=== PATIENT | male | born 1950 | race Caucasian/White ===

== ENCOUNTER → 2017-08-26 | Outpatient (CLI) | payer OTHER ==
[~2017-08-26] VITALS: Ht 182.9 cm; Wt 99.8 kg
[~2017-08-26] MED LIST: ALDACTONE25 MG PO; ASPIR 8181 MG PO; CARDIO OMEGA B1 EACH PO; CENTRUM SILVER1 EAC2 PO; COREG25 MG PO; COZAAR 25 MG TA25 M1 PO; ENTRESTO 49 MG1 EACH PO; FISH OIL 1,001000 M2 PO; LIPITOR 20 MG T20 M1 PO; SYNTHROID112 MCG PO
--- NOTE | ~2017-08-26 | P ---
[facility] [place] [place] [address] PROCEDURE REPORT Name: BLANCA SKELTON Room #: REG [facility]#: [id number] Admission: 08/26/17 Attend Phys: Vince Jain Discharge: Date of : 54 Report #: [id number] THIS REPORT FOR: //name// CC: Vince Payne MD DATE OF SERVICE: 08/26/2017 PROCEDURE PERFORMED: Colonoscopy. HISTORY OF PRESENT ILLNESS: The patient is a 66-year-old male who presents today for routine screening colonoscopy. No previous history of endoscopy. He denies any symptoms. No family history of colon cancer. DESCRIPTION OF PROCEDURE: The risks and benefits of the procedure were explained to the patient, those risks including but not limited to bleeding, perforation, the risk of sedation. He understood these risks and gave informed consent. Sedation was given using propofol per anesthesia. Next, a digital rectal exam was initially performed, which was normal. Next, using a standard Fujinon colonoscope, the scope was placed in the patient's anus and advanced under direct vision to the cecum. The overall prep was excellent. The cecum and ileocecal valve were normal in appearance. Terminal ileum was intubated and normal in appearance. The ascending, transverse and descending colon were normal. Multiple diverticula were noted in the sigmoid colon, no evidence of inflammation, otherwise normal. The rectal mucosa was normal. On retroflexion, no abnormalities were noted. The scope was then withdrawn and small external hemorrhoid was noted. The procedure was terminated. The patient tolerated the procedure well. IMPRESSION: 1. Diverticulosis. 2. Otherwise, normal colonoscopy. RECOMMENDATIONS: Repeat colonoscopy in 10 years. Thank you for allowing me to participate in his care. <ELECTRONICALLY SIGNED> By: Vince Heller MD 09/02/17 0808 0934 50 Vince Heller MD /nt
== END | disposition home or self-care (01) ==
LOC: GI 07:41
DX: Z12.11 Encounter for screening for malignant neoplasm of colon (principal); K57.30 Diverticulosis of large intestine without perforation or abscess without bleeding; I10 Essential (primary) hypertension; E78.5 Hyperlipidemia, unspecified; E03.9 Hypothyroidism, unspecified; Z95.0 Presence of cardiac pacemaker; Z95.5 Presence of coronary angioplasty implant and graft; Z87.891 Personal history of nicotine dependence; Z98.890 Other specified postprocedural states; Z79.82 Long term (current) use of aspirin; Z79.899 Other long term (current) drug therapy
CPT/HCPCS: 62110; 62900

== ENCOUNTER → 2018-06-02 | Outpatient (CLI) | payer OTHER ==
[~2018-06-02] VITALS: Ht 182.9 cm; Wt 99.8 kg
--- NOTE | ~2018-06-02 | CATHLAB ---
[facility] [address] [place] [address] INVASIVE PROCEDURE REPORT Name: BLANCA SKELTON Will Room #: REG [facility]#: [id number] Admission: 06/02/18 Attend Phys: Osmani Lu Discharge: Date of : 54 Date of Service: 06/08/18 180 Report #: [id number] THIS REPORT FOR: //name// APPROVED REPORT Study performed: 06/02/2018 08:45:57 Patient Status: Out-Patient Room #: Event Personnel: Dionna Tijerina RN RN, Helen Stern RN Monitor, Pari Monroe, Osmani Ramos Yeast Fermentation Attendant Exam: GENERATOR CHANGE DUAL CHAMBER ICD Indications: EOL for primary prevention in an individual with optimized guidelines directed medical therapy and reduced left ventricular ejection fraction The patient is a 67 year-old male with a history of ischemic cardiomyopathy on optimize guidelines directed medical therapy. Intraoperative Conscious Sedation Versed 4 mg Demerol 25 mg IV push and 12.5 mg aliquots Implanted Devices: ICD-ST. NADER [id number] #[id number] Explanted Devices: ICD-MEDTRONIC PROTECTA XT DR [id number] Procedure After explaining the risks, benefits, and alternative options, informed consent was obtained from the patient. The patient was brought to the cardiac catheterization lab and the left chest and shoulder were prepped and draped in the usual fashion. After initiation of sedation the post-incision site was instilled with 1% lidocaine with epinephrine. The region was entirely instilled that was to be the incision site as well as deeper encompassing the pocket. Utilizing an 11 blade incision was made as antibiotic solution was infusing intravenously. Using both sharp and blunt dissection the capsule of the pocket was identified. Utilizing a blade the pocket was incised and 2 mosquito peons were utilized to extend the pocket as the Metzenbaum was utilized to open the pocket lengthwise. The device was then delivered without complications. The adherent tissue around the leads was carefully excised with the [facility] [address] [place] [address] INVASIVE PROCEDURE REPORT Name: COSTABLANCA L Room #: REG [facility]#: [id number] Admission: 06/02/18 Attend Phys: Osmani Lu Discharge: Date of : 54 Date of Service: 06/08/18 1807 Report #: [id number] Metzenbaum scissors to provide better mobility. The replacement implanted device was then connected. The pocket was chest device and leads were all rinsed and thoroughly moistened with antibiotic solution. The device is then placed in the pocket and positioning was verified with leads deep to the greater. Using nonabsorbable suture 2 layers were a in a running locking stitch. The initial incision which was significantly keloid was excised and utilizing plastic surgical techniques the issues were opposed closely. Skin was without tension and using 3-0 running subcuticular suture skin was closed. Steri-Strips 4 x 4 OpSite were placed. Counts were verified. Patient pallor procedure well Complications The patient tolerated the procedure well and there were no complications associated with the procedure. Findings Specimens Removed: No Estimated Blood Loss: 5 mL Conclusion 1. Successful implantation and an exchange of a [employer]. Nader's 2-lead ICD generator. <ELECTRONICALLY SIGNED> By: Osmani Ramos MD 06/08/181806 06 06 Osmani Ramos MD /INF
[2018-06-02 08:24] VITALS: BP 112/67
[2018-06-02 08:26] LABS: ABSOLUTE NEUTROPHILS 5.6 thou/uL (1.4-8.2); BASOPHILS 1.5 % (0.0-2.0); EOSINOPHILS 8.1 % (0.0-3.0); HEMATOCRIT 42.3 % (42.0-52.0); HEMOGLOBIN 14.4 gm/dL (14.0-18.0); LYMPHOCYTES 18.7 % (24.0-44.0); MCH 30.5 pg (26.0-34.0); MCV 89.9 fL (80.0-100.0); MONOCYTES 5.8 % (1.0-8.0); PLATELET COUNT 144 thou/uL (150-400); POLYS 65.9 % (36.0-66.0); WBC 8.5 thou/uL (4.0-11.0)
[2018-06-02 08:33] LABS: CALCIUM 9.1 mg/dL (8.5-10.1); CREATININE 1.4 mg/dL (0.7-1.3); POTASSIUM 4.5 mmol/L (3.5-5.1)
== END | disposition home or self-care (01) ==
LOC: CATH 07:55
PROVIDERS: Internal Medicine
DX: Z45.02 Encounter for adjustment and management of automatic implantable cardiac defibrillator (principal); I25.5 Ischemic cardiomyopathy; I11.0 Hypertensive heart disease with heart failure; I50.9 Heart failure, unspecified; I25.2 Old myocardial infarction; E78.5 Hyperlipidemia, unspecified; E03.9 Hypothyroidism, unspecified; Z82.49 Family history of ischemic heart disease and other diseases of the circulatory system; Z95.5 Presence of coronary angioplasty implant and graft; Z87.891 Personal history of nicotine dependence; Z79.82 Long term (current) use of aspirin; Z79.899 Other long term (current) drug therapy; Z98.890 Other specified postprocedural states

== ENCOUNTER → 2018-07-14 | Outpatient (CLI) | payer OTHER ==
[~2018-07-14] VITALS: Ht 182.9 cm; Wt 99.8 kg
[~2018-07-14] MED LIST changes: +ENTRESTO 24 MG1 EACH PO; +PLAVIX 75 MG TA75 M1 PO
[2018-07-14 08:34] VITALS: BP 86/60
[2018-07-14 08:49] LABS: HEMATOCRIT 43.9 % (42.0-52.0); HEMOGLOBIN 14.7 gm/dL (14.0-18.0); MCH 30.7 pg (26.0-34.0); MCHC 33.5 g/dL (28.0-37.0); MCV 91.7 fL (80.0-100.0); RBC 4.79 mil/uL (4.50-6.00); RDW 15.2 % (10.5-14.5); WBC 9.1 thou/uL (4.0-11.0)
[2018-07-14 08:58] LABS: CALCIUM 9.2 mg/dL (8.5-10.1); CREATININE 1.5 mg/dL (0.7-1.3); POTASSIUM 4.9 mmol/L (3.5-5.1)
[2018-07-14 09:09] LABS: PROTIME 10.7 Seconds (9.3-11.4)
--- NOTE | 2018-07-14 12:08 | EKG ---
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
--- NOTE | 2018-07-17 11:44 | CATHLAB ---
[facility] [address] [place] [address] INVASIVE PROCEDURE REPORT Name: COSTABLANCA Will Room #: REG [facility]#: [id number] Admission: 07/14/18 Attend Phys: Osmani Lu Discharge: Date of : 54 Date of Service: 07/17/18 1144 Report #: [id number] THIS REPORT FOR: //name// APPROVED REPORT Study performed: 07/14/2018 11:08:32 Patient Details Patient Status: Out-Patient Room #: The patient is a 67 year-old male Event Personnel Osmani Ramos [place]ort Planning Manager, Joycelyn Verduzco, Ambrosio Alanis Penny, Wes neurology manager Performed Art Access - R femoral artery* 17139 Initial Mod Sed Same Phys/QHP Gr5y 655861 Left Heart Cath w/or w/o Coronaries [id number] [facility] Hemostasis with Manual pressure supervision of conscious sedation Indication Chest pain Procedure Narrative The patient was brought electively to the Cardiac Catheterization Laboratory and was prepped and draped in a sterile manner. The Right Groin^ was infiltrated with 1% Lidocaine subcutaneous anesthesia. A PINNACLE 4FR Sheath #[id number] sheath was inserted into the RFA^. Coronary angiography was performed using coronary diagnostic catheters. The right coronary system was accessed and visualized with a JR 4 catheter. The left coronary system was accessed and visualized with a JL 4 catheter. The left ventricle was accessed and visualized with a JR 4 catheter. Left ventricular/Aortic Valve gradient assessed via catheter pullback. Hemostasis was obtained with manual pressure following sheath removal without any complications. The patient tolerated the procedure well and there were no complications associated with the procedure. There was no hematoma. Intraoperative Conscious Sedation Sedation start time: 11:05 Case end Time: 11:32 Versed 2 mg Fluoro Time: 2.00 minutes [place] [address] INVASIVE PROCEDURE REPORT Name: BLANCA SKELTON Room #: [facility]#: [id number] Admission: 07/14/18 Attend Phys: Osmani Lu Discharge: Date of : 54 Date of Service: 07/17/18 1144 Report #: [id number] Dose: DAP 3022.00 cGycm2 801 mGy Contrast Type and Amount: Omnipaque 45 ml Coronary Angiography The patient's coronary anatomy is right dominant. Diagnostic Cath Left Main Normal origin and moderate to large caliber bifurcates into left anterior descending left circumflex. This a distal 40% eccentric lesion identified which is nonflow limiting LAD Moderate to large caliber type II vessel which courses in the interventricular sulcus. The proximal stent appears to be patent with only minimal luminal restriction noted. The vessel then continues in the anterior interventricular sulcus terminating as a bifurcating branch of the luminary irregularities present Diagonal 1 Moderate caliber vessel it's a less than 50% ostial lesion noted. Then continues on towards the apex on the anterolateral wall with only luminal irregularities present Circumflex Moderate caliber vessel which courses in the AV groove posteriorly and then trifurcates into 2 marginal branches in the distal circulation as well as an orders of the AV node. No significant high-grade lesions are noted OM1 Small to moderate caliber vessel free of high-grade disease OM2 Small-caliber vessel without high-grade lesions noted terminating as a bifurcating vessel Right Coronary Totally occluded proximally R PDA Small-caliber vessel filling via [id number]-qhcdy collaterals without high-grade lesions present RPLV All caliber vessel filling via hucl-os-[id number] collaterals Left Ventriculography Left Ventriculography was not performed. Hemodynamics The aortic pressure is 88/57 mmHg with a mean of 68 mmHg. The left ventricular pressure is 101/8 mmHg with a mean of mmHg. The left ventricular end diastolic pressure is 21 mmHg. Conclusion 1. Coronary artery disease consisting of mild to moderate luminal irregularities of the left main and left circulation with totally occluded proximal RCA well collateralized with Left to Right flow 2. Abnormal hemodynamics with elevated LVEDP Recommendations [facility] [address] [place] [address] INVASIVE PROCEDURE REPORT Name: BLANCA SKELTON [id number] Admission: 07/14/18 Attend Phys: Osmani Lu Discharge: Date of : 54 Date of Service: 07/17/18 1144 Report #: [id number] Cardiac Risk Reduction Program Medical Therapy <ELECTRONICALLY SIGNED> By: Osmani Ramos MD 07/17/18 1144 1144 1144 Osmani Ramos MD /INF
== END | disposition home or self-care (01) ==
LOC: CATH 08:09
PROVIDERS: Internal Medicine
DX: I25.10 Atherosclerotic heart disease of native coronary artery without angina pectoris (principal); I10 Essential (primary) hypertension; I48.91 Unspecified atrial fibrillation; I25.2 Old myocardial infarction; I42.9 Cardiomyopathy, unspecified; I49.9 Cardiac arrhythmia, unspecified; E78.5 Hyperlipidemia, unspecified; E03.9 Hypothyroidism, unspecified; Z95.5 Presence of coronary angioplasty implant and graft; Z95.810 Presence of automatic (implantable) cardiac defibrillator; Z82.49 Family history of ischemic heart disease and other diseases of the circulatory system; Z79.01 Long term (current) use of anticoagulants; Z87.891 Personal history of nicotine dependence; Z79.82 Long term (current) use of aspirin; Z79.899 Other long term (current) drug therapy

== ENCOUNTER → 2018-08-14 | Outpatient (CLI) | payer OTHER ==
[~2018-08-14] VITALS: Ht 182.9 cm; Wt 104.3 kg
[~2018-08-14] MED LIST changes: +PRADAXA150 MG PO
--- NOTE | ~2018-08-14 | P ---
[facility] [place] [address] [place] [address] PROCEDURE REPORT Name: BLANCA SKELTON [facility] [id number] Admission: 08/14/18 Attend Phys: Vikas Finn MD Discharge: Date of : 54 Report #: [id number] THIS REPORT FOR: //name// CC: Devorah Finn PREOPERATIVE DIAGNOSIS: Atrial fibrillation. POSTOPERATIVE DIAGNOSIS: Atrial fibrillation. PROCEDURES PERFORMED: 1. External DC cardioversion. 2. ICD reprogramming. DESCRIPTION OF PROCEDURE: The patient underwent informed consent. He was then sedated by the Anesthesiology service. Once sedated, he underwent 200 joules synchronized cardioversion with jehovah's witness of sinus rhythm. There were no procedural complications. Post-cardioversion, his ICD was interrogated and found to be functioning normally and we programmed into a DDDR 60-130 mode. I increased his VF zone from 200 beats a minute to 220 beats a minute. By: 1354 1741 Vikas Finn MD /nt
[2018-08-14 09:45] VITALS: BP 96/52
[2018-08-14 09:55] LABS: HEMATOCRIT 39.9 % (42.0-52.0); HEMOGLOBIN 13.3 gm/dL (14.0-18.0); MCH 30.8 pg (26.0-34.0); MCHC 33.4 g/dL (28.0-37.0); MCV 92.4 fL (80.0-100.0); RBC 4.32 mil/uL (4.50-6.00); RDW 15.4 % (10.5-14.5); WBC 8.3 thou/uL (4.0-11.0)
[2018-08-14 10:01] LABS: CALCIUM 8.9 mg/dL (8.5-10.1); CREATININE 1.5 mg/dL (0.7-1.3); POTASSIUM 4.8 mmol/L (3.5-5.1)
[2018-08-14 10:06] LABS: ALBUMIN 3.5 g/dL (3.4-5.0); TOTAL BILIRUBIN 0.7 mg/dL (<0.1-1.0); TOTAL PROTEIN 6.6 g/dL (6.4-8.2)
[2018-08-14 10:08] LABS: APTT 53.7 Seconds (24.5-32.8); INR 1.5; PROTIME 15.3 Seconds (9.3-11.4)
--- NOTE | 2018-08-14 12:30 | NUR ---
DEVICE CHECK DONE. ADJUSTMENTS MADE PER DR GERBER. VSS. NSR. NOW AT BEDSIDE. PT AWAKE AND ALERT X4. NO C/O. PLEASENT AFFECT. QUESTIONS ANSWERED RE AFIB. VOIDED 200CC PER URINAL. REQUESTS LUNCH PRIOR TO DISCHARGE. RA O2 SAT 99%. CONT TO RECOVER.
== END | disposition home or self-care (01) ==
LOC: CATH 07:01
PROVIDERS: Internal Medicine Cardiovascular Disease
DX: I48.91 Unspecified atrial fibrillation (principal); I11.0 Hypertensive heart disease with heart failure; I50.9 Heart failure, unspecified; I42.9 Cardiomyopathy, unspecified; E78.5 Hyperlipidemia, unspecified; E03.9 Hypothyroidism, unspecified; I25.2 Old myocardial infarction; Z95.5 Presence of coronary angioplasty implant and graft; Z82.49 Family history of ischemic heart disease and other diseases of the circulatory system; Z79.01 Long term (current) use of anticoagulants; Z95.810 Presence of automatic (implantable) cardiac defibrillator; Z98.890 Other specified postprocedural states; Z79.82 Long term (current) use of aspirin; Z79.899 Other long term (current) drug therapy
CPT/HCPCS: 62110; 62900

== ENCOUNTER 2019-01-05 07:34 | Emergency (ER) | payer OTHER ==
[~2019-01-05] VITALS: Ht 182.9 cm; Wt 99.8 kg
[2019-01-05 08:08] LABS: URINE BILIRUBIN NEGATIVE (Negative); URINE BLOOD 3+ (Negative); URINE CLARITY CLEAR; URINE COLOR YELLOW; URINE GLUCOSE-RANDOM* NEGATIVE (Negative); URINE KETONES NEGATIVE (Negative); URINE LEUKOCYTES-REFLEX TRACE (Negative); URINE NITRITE-REFLEX NEGATIVE (Negative); URINE PROTEIN (DIPSTICK) TRACE (Negative); URINE SPECIFIC GRAVITY >= 1.030 (1.005-1.035); URINE UROBILINOGEN 0.2 E.U./dl (0.2-1.0)
[2019-01-05 08:21] LABS: SQUAMOUS 4-10 Moderate /LPF (0-3)
[2019-01-05 08:22] LABS: CASTS None Seen /LPF (None Seen); MUCUS >6 Heavy strn/LPF (None Seen); URINE WBC-REFLEX 0-5 Rare /HPF (0-5)
[2019-01-05 08:23] LABS: BACTERIA-REFLEX 1-9 Few /HPF (None Seen); CRYSTALS None Seen /LPF (None Seen); URINE RBC >20 Many /HPF (0-2)
[2019-01-05 08:44] LABS: CALCIUM 9.3 mg/dL (8.5-10.1); CREATININE 1.7 mg/dL (0.7-1.3); POTASSIUM 4.6 mmol/L (3.5-5.1)
[2019-01-05 08:48] LABS: ABSOLUTE NEUTROPHILS 9.9 thou/uL (1.4-8.2); BASOPHILS 0.6 % (0.0-2.0); EOSINOPHILS 3.9 % (0.0-3.0); HEMATOCRIT 39.4 % (42.0-52.0); HEMOGLOBIN 13.1 gm/dL (14.0-18.0); LYMPHOCYTES 12.1 % (24.0-44.0); MCH 30.7 pg (26.0-34.0); MCHC 33.1 g/dL (28.0-37.0); MCV 92.6 fL (80.0-100.0); MONOCYTES 5.2 % (1.0-8.0); POLYS 78.2 % (36.0-66.0); RBC 4.26 mil/uL (4.50-6.00); RDW 14.4 % (10.5-14.5); WBC 12.6 thou/uL (4.0-11.0)
[2019-01-05 08:50] LABS: ALBUMIN 3.5 g/dL (3.4-5.0); TOTAL BILIRUBIN 0.6 mg/dL (<0.1-1.0); TOTAL PROTEIN 6.6 g/dL (6.4-8.2)
[2019-01-05 09:43] LABS: PLATELET COUNT 158 thou/uL (150-400); PLATELET ESTIMATE NORMAL
[2019-01-05] MEDS ORDERED: SENNA-DOCUSATE1 EAC1 PO (11:19)
[2019-01-05] MEDS ORDERED: ZOFRAN ODT4 MG PO (11:19)
[2019-01-05] MEDS ORDERED: NORCO 5-325 TA1 EAC1 PO (11:19)
[2019-01-05 11:40] VITALS: BP 118/56
== END 2019-01-05 11:40 | disposition home or self-care (01) ==
LOC: ER 07:34
PROVIDERS: Emergency Medicine
DX: N20.0 Calculus of kidney (principal); I10 Essential (primary) hypertension; E78.5 Hyperlipidemia, unspecified; E03.9 Hypothyroidism, unspecified; Z95.5 Presence of coronary angioplasty implant and graft; I48.91 Unspecified atrial fibrillation

== ENCOUNTER → 2019-11-27 | Outpatient (CLI) | payer OTHER ==
[~2019-11-27] MED LIST changes: +NORCO 5-325 TA1 EAC1 PO; +SENNA-DOCUSATE1 EAC1 PO; +ZOFRAN ODT4 MG PO
== END ==
LOC: SJCVC 10:52
DX: R94.31 Abnormal electrocardiogram [ECG] [EKG] (principal); I48.91 Unspecified atrial fibrillation; I25.5 Ischemic cardiomyopathy; Z95.810 Presence of automatic (implantable) cardiac defibrillator

== ENCOUNTER 2019-12-18 08:01 | Emergency (ER) | payer OTHER ==
[~2019-12-18] VITALS: Ht 182.9 cm; Wt 97.5 kg
[2019-12-18] MEDS ORDERED: ENTRESTO 24 MG1 EACH PO (08:21)
[2019-12-18] MEDS ORDERED: SYNTHROID112 MC1 PO (08:22)
[2019-12-18] MEDS ORDERED: LIPITOR40 MG PO (08:22)
[2019-12-18 08:23] LABS: BASOPHILS 0.8 % (0.0-2.0); EOSINOPHILS 1.7 % (0.0-3.0); HEMATOCRIT 39.7 % (42.0-52.0); HEMOGLOBIN 13.4 gm/dL (14.0-18.0); LYMPHOCYTES 8.6 % (24.0-44.0); MCH 31.5 pg (26.0-34.0); MCHC 33.8 g/dL (28.0-37.0); MCV 93.3 fL (80.0-100.0); MONOCYTES 5.3 % (1.0-8.0); PLATELET COUNT 146 thou/uL (150-400); POLYS 83.6 % (36.0-66.0); RBC 4.26 mil/uL (4.50-6.00); RDW 15.1 % (10.5-14.5); WBC 9.6 thou/uL (4.0-11.0)
[2019-12-18] MEDS ORDERED: FISH OIL 1,0001 EAC9 PO (08:23)
[2019-12-18] MEDS ORDERED: PRADAXA150 MG PO (08:23)
[2019-12-18] MEDS ORDERED: CARVEDILOL12.5 MG PO (08:23)
[2019-12-18] MEDS ORDERED: SUPER THERAVIT1 EACH PO (08:23)
[2019-12-18 08:26] LABS: URINE BILIRUBIN NEGATIVE (Negative); URINE BLOOD 2+ (Negative); URINE CLARITY CLEAR; URINE COLOR YELLOW; URINE GLUCOSE-RANDOM* NEGATIVE (Negative); URINE KETONES TRACE (Negative); URINE NITRITE-REFLEX NEGATIVE (Negative); URINE PROTEIN (DIPSTICK) NEGATIVE (Negative); URINE SPECIFIC GRAVITY 1.025 (1.005-1.035); URINE UROBILINOGEN 0.2 E.U./dl (0.2-1.0)
[2019-12-18 08:31] LABS: URINE LEUKOCYTES-REFLEX 1+ (Negative)
[2019-12-18 08:33] LABS: CALCIUM 8.9 mg/dL (8.5-10.1); CREATININE 1.6 mg/dL (0.7-1.3); POTASSIUM 4.2 mmol/L (3.5-5.1)
[2019-12-18 08:39] LABS: ALBUMIN 3.5 g/dL (3.4-5.0); TOTAL PROTEIN 6.4 g/dL (6.4-8.2)
[2019-12-18 08:44] LABS: SQUAMOUS 0-3 Few /LPF (0-3); URINE RBC 3-10 Few /HPF (0-2); URINE WBC-REFLEX 6-15 Few /HPF (0-5)
[2019-12-18 08:45] LABS: CASTS None Seen /LPF (None Seen); CRYSTALS None Seen /LPF (None Seen)
[2019-12-18] MEDS ORDERED: ZOFRAN ODT4 MG PO ×2 (10:56→11:24)
[2019-12-18] MEDS ORDERED: NORCO 5-325 TA1 EAC1 PO (10:56)
[2019-12-18] MEDS ORDERED: SENNA-DOCUSATE1 EAC1 PO ×2 (10:56→11:24)
[2019-12-18] MEDS ORDERED: FLOMAX0.4 MG PO ×2 (10:56→11:24)
[2019-12-18] MEDS ORDERED: MACROBID 100 M100 MG PO ×2 (10:59→11:24)
[2019-12-18 11:40] VITALS: BP 98/52
== END 2019-12-18 11:40 | disposition home or self-care (01) ==
LOC: ER 08:01
PROVIDERS: Emergency Medicine
DX: N39.0 Urinary tract infection, site not specified (principal); E03.9 Hypothyroidism, unspecified; I10 Essential (primary) hypertension; E78.5 Hyperlipidemia, unspecified; I25.2 Old myocardial infarction; Z79.899 Other long term (current) drug therapy; Z87.442 Personal history of urinary calculi; Z95.0 Presence of cardiac pacemaker

== ENCOUNTER → 2020-04-29 | Outpatient (CLI) | payer OTHER ==
[~2020-04-29] MED LIST changes: +CARVEDILOL12.5 MG PO; +FISH OIL 1,0001 EAC9 PO; +FLOMAX0.4 MG PO; +LIPITOR40 MG PO; +MACROBID 100 M100 MG PO; +SUPER THERAVIT1 EACH PO; +SYNTHROID112 MC1 PO
== END ==
LOC: SJCVCIMAG 07:50
PROVIDERS: ATTEND Internal Medicine
DX: I08.1 Rheumatic disorders of both mitral and tricuspid valves (principal); I27.20 Pulmonary hypertension, unspecified; R94.31 Abnormal electrocardiogram [ECG] [EKG]; I25.5 Ischemic cardiomyopathy; I50.20 Unspecified systolic (congestive) heart failure; I48.0 Paroxysmal atrial fibrillation; Z79.899 Other long term (current) drug therapy; Z87.891 Personal history of nicotine dependence

== ENCOUNTER → 2020-05-16 | Outpatient (CLI) | payer OTHER ==
[~2020-05-16] VITALS: Ht 182.9 cm; Wt 97.5 kg
[~2020-05-16] MED LIST changes: +CARDIO TAB PO
--- NOTE | ~2020-05-16 | P ---
[facility] [place] [place] [address] PROCEDURE REPORT Name: BLANCA SKELTON Room #: REG [facility]#: [id number] Admission: 05/16/20 Attend Phys: Osmani Ramos Discharge: Date of : 54 Report #: [id number] THIS REPORT FOR: cc: Devorah Aparicio MD, Joy E. MD Lammoglia, Francisco J. MD ~ CC: Osmani Aparicio DATE OF SERVICE: 05/16/2020 PROCEDURE PERFORMED: Electrical cardioversion. INDICATIONS: This is a 69-year-old male patient with cardiomyopathy and new onset symptomatic atrial fibrillation. BRIEF DESCRIPTION OF PROCEDURE: After informed consent was obtained, the patient was sedated with 3 mg of Versed and 25 of Demerol IV. Continuous electrocardiographic and echocardiographic monitoring was performed. Utilizing a synchronized AP shock at 200 joules biphasic modality, the patient was converted to sinus mechanism with tracking ventricle. Post-procedure, no complications occurred. The patient was allowed to ambulate and discharged home in stable condition to follow up with the previously stated instructions and medications. By: 1539 1544 Osmani Ramos MD /nt
[2020-05-16 08:45] VITALS: BP 88/42
== END | disposition home or self-care (01) ==
LOC: CATH 07:51
PROVIDERS: ATTEND Internal Medicine
DX: I48.91 Unspecified atrial fibrillation (principal); I42.9 Cardiomyopathy, unspecified; I11.0 Hypertensive heart disease with heart failure; I50.9 Heart failure, unspecified; E78.5 Hyperlipidemia, unspecified; E03.9 Hypothyroidism, unspecified; I25.2 Old myocardial infarction; Z95.0 Presence of cardiac pacemaker; Z98.890 Other specified postprocedural states; Z79.899 Other long term (current) drug therapy; Z87.891 Personal history of nicotine dependence; Z82.49 Family history of ischemic heart disease and other diseases of the circulatory system; Z79.01 Long term (current) use of anticoagulants

== ENCOUNTER → 2020-07-17 | Outpatient (CLI) | payer OTHER | LOC: SJCVC 15:11 | PROVIDERS: ATTEND Internal Medicine | DX: I25.5 Ischemic cardiomyopathy (principal); I50.20 Unspecified systolic (congestive) heart failure; I48.0 Paroxysmal atrial fibrillation; R94.31 Abnormal electrocardiogram [ECG] [EKG]; Z95.0 Presence of cardiac pacemaker; E78.5 Hyperlipidemia, unspecified; Z95.1 Presence of aortocoronary bypass graft; Z79.899 Other long term (current) drug therapy; Z87.891 Personal history of nicotine dependence ==

== ENCOUNTER → 2020-09-18 | Outpatient (CLI) | payer OTHER | LOC: SJCVCIMAG 14:38 | PROVIDERS: ATTEND Internal Medicine | DX: I07.1 Rheumatic tricuspid insufficiency (principal); I48.91 Unspecified atrial fibrillation; I25.10 Atherosclerotic heart disease of native coronary artery without angina pectoris; I25.2 Old myocardial infarction; Z98.61 Coronary angioplasty status ==

== ENCOUNTER → 2020-11-13 | Outpatient (CLI) | payer OTHER | LOC: SJCVC 13:24 | PROVIDERS: ATTEND Internal Medicine Cardiovascular Disease | DX: R94.31 Abnormal electrocardiogram [ECG] [EKG] (principal); I45.4 Nonspecific intraventricular block; I48.91 Unspecified atrial fibrillation; I25.5 Ischemic cardiomyopathy; I25.10 Atherosclerotic heart disease of native coronary artery without angina pectoris; E78.5 Hyperlipidemia, unspecified; E03.9 Hypothyroidism, unspecified; Z98.890 Other specified postprocedural states; Z95.810 Presence of automatic (implantable) cardiac defibrillator; Z79.899 Other long term (current) drug therapy; Z87.891 Personal history of nicotine dependence; Z82.49 Family history of ischemic heart disease and other diseases of the circulatory system ==

== ENCOUNTER → 2020-12-22 | Outpatient (CLI) | payer OTHER ==
[2020-12-22 08:24] LABS: ABSOLUTE NEUTROPHILS 4.7 thou/uL (1.4-8.2); BASOPHILS 0.9 % (0.0-2.0); EOSINOPHILS 5.9 % (0.0-3.0); HEMATOCRIT 40.8 % (42.0-52.0); HEMOGLOBIN 13.5 gm/dL (14.0-18.0); LYMPHOCYTES 18.8 % (24.0-44.0); MCH 31.3 pg (26.0-34.0); MCV 94.6 fL (80.0-100.0); MONOCYTES 8.7 % (1.0-8.0); PLATELET COUNT 141 thou/uL (150-400); POLYS 65.7 % (36.0-66.0); RBC 4.32 mil/uL (4.50-6.00); WBC 7.1 thou/uL (4.0-11.0)
[2020-12-22 09:07] LABS: ALBUMIN 3.5 g/dL (3.4-5.0); CALCIUM 9.1 mg/dL (8.5-10.1); CREATININE 1.7 mg/dL (0.7-1.3); POTASSIUM 4.7 mmol/L (3.5-5.1); TOTAL BILIRUBIN 0.9 mg/dL (0.2-1.0); TOTAL PROTEIN 6.4 g/dL (6.4-8.2)
== END ==
LOC: CAT 06:50 → LAB 10:31
PROVIDERS: ATTEND Internal Medicine Cardiovascular Disease
DX: Z01.818 Encounter for other preprocedural examination (principal); I51.7 Cardiomegaly; I48.91 Unspecified atrial fibrillation

== ENCOUNTER 2020-12-25 06:25 | Observation (INO) | payer OTHER ==
[~2020-12-25] VITALS: Ht 182.9 cm; Wt 101.6 kg
[2020-12-25 07:19] VITALS: BP 95/50
[2020-12-25 07:42] LABS: ABSOLUTE NEUTROPHILS 3.7 thou/uL (1.4-8.2); BASOPHILS 1.1 % (0.0-2.0); EOSINOPHILS 7.2 % (0.0-3.0); HEMATOCRIT 41.5 % (42.0-52.0); HEMOGLOBIN 13.7 gm/dL (14.0-18.0); LYMPHOCYTES 19.4 % (24.0-44.0); MCH 31.3 pg (26.0-34.0); MONOCYTES 7.1 % (1.0-8.0); PLATELET COUNT 135 thou/uL (150-400); POLYS 65.2 % (36.0-66.0); RBC 4.37 mil/uL (4.50-6.00); WBC 5.7 thou/uL (4.0-11.0)
[2020-12-25 07:50] LABS: CALCIUM 8.7 mg/dL (8.5-10.1); CREATININE 1.5 mg/dL (0.7-1.3); POTASSIUM 4.2 mmol/L (3.5-5.1)
[2020-12-25 07:56] LABS: ALBUMIN 3.4 g/dL (3.4-5.0); TOTAL BILIRUBIN 0.8 mg/dL (0.2-1.0); TOTAL PROTEIN 6.4 g/dL (6.4-8.2)
[2020-12-25 08:28] LABS: APTT 40.2 Seconds (24.5-32.8); INR 1.14; PROTIME 12.4 Seconds (10.5-12.1)
[2020-12-25] MEDS ORDERED: MULTAQ 400 MG400 MG PO (15:47)
[2020-12-25 17:32] VITALS: BP 124/65
[2020-12-25 19:28] VITALS: BP 109/68
[2020-12-26] VITALS: BP 93/52
--- NOTE | 2020-12-26 01:40 | NUR ---
ASSESSMENT CHARTED, MEDS CHARTED GIVEN. PATIENT OFF BED REST AT START OF SHIFT. RIGHT GROIN SITE IS SOFT, CLEAN, DRY, INTACT. PATIENT HAD TO BE STRAIGHT CATH'D IN PACU WITH 800ML OUT. PATIENT HAS URINAL, HE KNOWS HE NEEDS TO URINATE BY 02OO OR WE WILL BLADDER SCAN AND POSSIBLE STRAIGHT CATH AGAIN. ICU NURSE COMING TO UNIT, GAVE REPORT TO OPHELIA PRIOR TO HER TAKING OVER AT 2300~.
[2020-12-26 03:52] VITALS: BP 115/63
[2020-12-26 08:50] VITALS: BP 100/62
[2020-12-26 09:51] VITALS: BP 100/62
[2020-12-26 11:21] VITALS: BP 100/62
--- NOTE | 2020-12-26 11:59 | P ---
[facility] [place] [place] [address] PROCEDURE REPORT Name: BLANCA SKELTON Room #: 212-P [facility]..#: [id number] Admission: 12/25/20 Attend Phys: Vikas Finn MD Discharge: Date of : 54 Report #: [id number] THIS REPORT FOR: cc: Devorah Aparicio MD, Joy E. MD Couchonnal, Luis F. MD DOC #: [id number] Vikas Finn MD DATE OF SERVICE: 12/25/2020 PREOPERATIVE DIAGNOSIS: Atrial fibrillation. POSTOPERATIVE DIAGNOSIS: Atrial fibrillation. PROCEDURE PERFORMED: 1. Preprocedural ICD reprogramming, CPT code 46009. 2. AFib ablation, CPT code 67939. 3. 3D mapping, CPT code 91190. 4. Intracardiac echo, CPT code 52909. 5. Focal ablation, CPT code 57779. 6. Post-procedural ICD reprogramming, CPT code 44776. HISTORY: The patient is a 70-year-old with a history of coronary artery disease status post PR with an ischemic cardiomyopathy, status post St. Nader ICD implantation, who has had recurrent atrial fibrillation, here for ablation. ANESTHESIA: The patient underwent general anesthesia with no anesthesia related complications. INDICATIONS FOR PROCEDURE: The patient underwent informed consent. We discussed the details of the procedure including the risks, which include but not limited to bleeding, vascular damage, stroke, PR as well as cardiac perforation. He understood these risks and is willing to proceed. DESCRIPTION OF PROCEDURE: The patient was brought to the EP laboratory in a fasting and sedated state and prepped and draped in a sterile fashion. Prior to initiation of the procedure, his ICD was interrogated and found to be within normal limits and he was noted to be in atrial fibrillation. I did turn off ICD therapies. Next, I injected lidocaine at the right groin and obtained access to the right femoral vein x 3, placing a 8, 9 and 7-Indonesian short sheath using the modified Seldinger technique. Next, under fluoroscopy, the patient had a decapolar catheter placed in coronary sinus. Of note, placement of catheters from the IVC to the right atrium was somewhat challenging. I had somewhat difficulty just entering into the right atrium and had some difficulties getting the coronary sinus catheter into the CS, but eventually we got it in with no issues. Using intracardiac ultrasound, the patient had evidence of 2 left and [address] [address] PROCEDURE REPORT Name: BLANCA SKELTON Room #: 212-P [facility]..#: [id number] Admission: 12/25/20 Attend Phys: Vikas Finn MD Discharge: Date of : 54 Report #: [id number] right pulmonary veins. His intracardiac ultrasound images were merged with his cardiac CT scan. Next, the patient was systemically heparinized and a transseptal was performed using an SL1 sheath and a Dixon needle. Again, getting into the SVC was somewhat difficult as the wires kept wanting to go either into the right atrial appendage or right ventricular outflow tract, but eventually I got it into the SVC and was able to avoid entanglement with the atrial lead. I then performed a transseptal which was straightforward using the SL1 sheath and Dixon needle and then I was able to exchange for the cryosheath which I was able to advance into the left atrium. Next, the Lasso catheter was placed in the left atrium and 3D voltage map of the left atrium was created. Next, I started by isolating the left superior pulmonary vein. I performed a 4-minute followed by 3-minute freeze which did not result in isolation. I therefore performed a freeze where I pushed the balloon more against the roof aspect of the left superior pulmonary vein and this resulted in isolation in 52 seconds. A third freeze was of 4 minutes' duration. Next, the left inferior pulmonary vein underwent a 300 second freeze which resulted in isolation at 170 seconds. I performed an additional freeze of 3 minutes duration. I then turned my attention to the right superior pulmonary vein. This vein underwent a 4-minute freeze and isolated at 40 seconds, the right inferior pulmonary vein underwent a 3-minute freeze and isolated at 23 seconds. There was never any phrenic nerve compromise. Posterior wall isolation. Next, given his persistent AFib, we performed posterior roof line. I performed 4 freezes anchored from the left superior pulmonary vein at the roof region. Each freeze was of 3 minutes' duration. I then performed 3 additional freezes slightly below, the root freezes each of 3 minutes' duration. A repeat voltage map was then created. This showed that all 4 pulmonary veins were isolated and the posterior roof and mid atrium were now all electrically isolated as well. A 200 joule synchronized cardioversion was performed with faith of sinus rhythm. There were no other arrhythmias noted. Using intracardiac ultrasound, I verified there is no pericardial effusion. As such, the patient then received systemic protamine and catheters and sheaths were pulled and hemostasis was obtained using manual pressure. Next, I re-interrogated this device, it was found to be functioning normally and I reenabled his ICD therapies. CONCLUSIONS: 1. Successful AFib ablation with isolation of pulmonary veins. 2. Successful posterior wall isolation. 3. Successful ICD pre and post-procedural reprogramming. [facility] [address] [place] [address] PROCEDURE REPORT Name: BLANCA SKELTON Room #: 212-P [facility] M.R.#: [id number] Admission: 12/25/20 Attend Phys: Vikas Finn MD Discharge: Date of : 54 Report #: [id number] MD SETH Smith/SCARLETT <ELECTRONICALLY SIGNED> By: Vikas Finn MD 12/26/20 1159 1031 2057 Vikas Finn MD /nt
== END 2020-12-26 12:05 | disposition home or self-care (01) ==
LOC: CATH 06:25 → 2N 17:21
PROVIDERS: ADMIT Internal Medicine Cardiovascular Disease; ATTEND Internal Medicine Cardiovascular Disease
DX: I48.91 Unspecified atrial fibrillation (principal); Z20.822 Contact with and (suspected) exposure to COVID-19; I25.10 Atherosclerotic heart disease of native coronary artery without angina pectoris; E78.5 Hyperlipidemia, unspecified; I11.0 Hypertensive heart disease with heart failure; I50.9 Heart failure, unspecified; Z79.899 Other long term (current) drug therapy
CPT/HCPCS: 62110; 62900; 65020; 70005

== ENCOUNTER → 2021-03-26 | Outpatient (CLI) | payer OTHER ==
[~2021-03-26] MED LIST changes: +MULTAQ 400 MG400 MG PO
== END ==
LOC: SJCVC 13:47
PROVIDERS: ATTEND Internal Medicine Cardiovascular Disease
DX: R94.31 Abnormal electrocardiogram [ECG] [EKG] (principal); I45.4 Nonspecific intraventricular block; I48.91 Unspecified atrial fibrillation; I25.5 Ischemic cardiomyopathy; E78.5 Hyperlipidemia, unspecified; E03.9 Hypothyroidism, unspecified; Z79.899 Other long term (current) drug therapy; Z95.810 Presence of automatic (implantable) cardiac defibrillator; Z72.89 Other problems related to lifestyle; Z87.891 Personal history of nicotine dependence

== ENCOUNTER → 2021-06-10 | Outpatient (CLI) | payer OTHER | LOC: SJCVC 15:06 | PROVIDERS: ATTEND Internal Medicine Cardiovascular Disease | DX: R94.31 Abnormal electrocardiogram [ECG] [EKG] (principal); I48.91 Unspecified atrial fibrillation; I25.5 Ischemic cardiomyopathy; I25.10 Atherosclerotic heart disease of native coronary artery without angina pectoris; E78.5 Hyperlipidemia, unspecified; E03.9 Hypothyroidism, unspecified; Z95.810 Presence of automatic (implantable) cardiac defibrillator; Z82.49 Family history of ischemic heart disease and other diseases of the circulatory system; Z72.89 Other problems related to lifestyle; Z79.899 Other long term (current) drug therapy; Z87.891 Personal history of nicotine dependence ==

== ENCOUNTER → 2021-07-17 | Outpatient (CLI) | payer OTHER | LOC: SJCVCIMAG 07-09 06:50 | PROVIDERS: ATTEND Internal Medicine | DX: I08.8 Other rheumatic multiple valve diseases (principal); R00.2 Palpitations; I42.9 Cardiomyopathy, unspecified; I25.10 Atherosclerotic heart disease of native coronary artery without angina pectoris; I25.5 Ischemic cardiomyopathy; N18.30 Chronic kidney disease, stage 3 unspecified; I48.91 Unspecified atrial fibrillation; I44.2 Atrioventricular block, complete; E03.9 Hypothyroidism, unspecified; E78.5 Hyperlipidemia, unspecified; Z95.0 Presence of cardiac pacemaker; Z95.810 Presence of automatic (implantable) cardiac defibrillator; Z79.899 Other long term (current) drug therapy; Z72.89 Other problems related to lifestyle; Z87.891 Personal history of nicotine dependence ==

== ENCOUNTER → 2021-08-05 | Outpatient (CLI) | payer OTHER | LOC: SJCVC 15:19 | PROVIDERS: ATTEND Nuclear Medicine Nuclear Cardiology | DX: I73.9 Peripheral vascular disease, unspecified (principal); I70.1 Atherosclerosis of renal artery; I25.10 Atherosclerotic heart disease of native coronary artery without angina pectoris; I48.91 Unspecified atrial fibrillation; K55.1 Chronic vascular disorders of intestine; Z87.891 Personal history of nicotine dependence; Z72.89 Other problems related to lifestyle; F12.10 Cannabis abuse, uncomplicated; Z79.899 Other long term (current) drug therapy; E78.5 Hyperlipidemia, unspecified; E03.9 Hypothyroidism, unspecified; Z95.0 Presence of cardiac pacemaker; Z95.5 Presence of coronary angioplasty implant and graft; Z82.49 Family history of ischemic heart disease and other diseases of the circulatory system ==

== ENCOUNTER → 2021-08-20 | Outpatient (CLI) | payer OTHER ==
[~2021-08-20] VITALS: Ht 182.9 cm; Wt 97.5 kg
[2021-08-20 10:42] VITALS: BP 111/63
[2021-08-20 10:53] LABS: HEMATOCRIT 47.4 % (42.0-52.0); HEMOGLOBIN 15.5 gm/dL (14.0-18.0); MCH 30.4 pg (26.0-34.0); MCHC 32.7 g/dL (28.0-37.0); MCV 93.1 fL (80.0-100.0); RBC 5.09 mil/uL (4.50-6.00); WBC 8.4 thou/uL (4.0-11.0)
[2021-08-20 11:00] LABS: CREATININE 1.4 mg/dL (0.7-1.3); POTASSIUM 4.4 mmol/L (3.5-5.1)
--- NOTE | 2021-08-20 16:08 | NUR ---
PT TO CV HOLDING RM 6 A/OX3 NO C/O. URINAL PROVIDED
== END | disposition home or self-care (01) ==
LOC: CATH 07:32
PROVIDERS: ATTEND Nuclear Medicine Nuclear Cardiology
DX: K55.1 Chronic vascular disorders of intestine (principal); I70.1 Atherosclerosis of renal artery; I73.9 Peripheral vascular disease, unspecified; M79.604 Pain in right leg; M79.605 Pain in left leg; I10 Essential (primary) hypertension; I48.91 Unspecified atrial fibrillation; E03.9 Hypothyroidism, unspecified; I25.2 Old myocardial infarction; Z98.890 Other specified postprocedural states; Z79.899 Other long term (current) drug therapy; Z79.01 Long term (current) use of anticoagulants; Z95.0 Presence of cardiac pacemaker; Z87.891 Personal history of nicotine dependence

== ENCOUNTER 2021-09-14 11:20 | Emergency (ER) | payer OTHER ==
[~2021-09-14] VITALS: Ht 182.9 cm; Wt 97.5 kg
[2021-09-14 11:24] VITALS: BP 91/53
[2021-09-14 12:32] LABS: ABSOLUTE NEUTROPHILS 6.9 thou/uL (1.4-8.2); BASOPHILS 1.1 % (0.0-2.0); EOSINOPHILS 4.8 % (0.0-3.0); HEMATOCRIT 36.2 % (42.0-52.0); LYMPHOCYTES 15.2 % (24.0-44.0); MCH 30.4 pg (26.0-34.0); MCHC 33.2 g/dL (28.0-37.0); MCV 91.5 fL (80.0-100.0); MONOCYTES 8.4 % (1.0-8.0); PLATELET COUNT 173 thou/uL (150-400); POLYS 70.5 % (36.0-66.0); RBC 3.96 mil/uL (4.50-6.00); RDW 15.2 % (10.5-14.5); WBC 9.8 thou/uL (4.0-11.0)
[2021-09-14 12:35] LABS: CALCIUM 8.7 mg/dL (8.5-10.1); CREATININE 1.5 mg/dL (0.7-1.3); POTASSIUM 4.6 mmol/L (3.5-5.1)
[2021-09-14 12:41] LABS: ALBUMIN 3.3 g/dL (3.4-5.0); TOTAL BILIRUBIN 0.8 mg/dL (0.2-1.0); TOTAL PROTEIN 6.6 g/dL (6.4-8.2)
[2021-09-14] MEDS ORDERED: FLEXERIL PO ×2 (14:02→14:07)
== END 2021-09-14 15:02 | disposition home or self-care (01) ==
LOC: ER 11:20
PROVIDERS: Physician Assistant
DX: S70.02XA Contusion of left hip, initial encounter (principal); S70.12XA Contusion of left thigh, initial encounter; I48.91 Unspecified atrial fibrillation; I25.2 Old myocardial infarction; E03.9 Hypothyroidism, unspecified; Z79.899 Other long term (current) drug therapy; W01.10XA Fall on same level from slipping, tripping and stumbling with subsequent striking against unspecified object, initial encounter; Y93.89 Activity, other specified; Y92.89 Other specified places as the place of occurrence of the external cause; Y99.8 Other external cause status

== ENCOUNTER 2021-09-16 14:40 | Emergency (ER) | payer OTHER ==
[~2021-09-16] VITALS: Ht 182.9 cm; Wt 97.5 kg
[~2021-09-16 14:40] MED LIST changes: +FLEXERIL PO
[2021-09-16 14:53] VITALS: BP 107/45
[2021-09-16 17:00] LABS: ABSOLUTE NEUTROPHILS 3.8 thou/uL (1.4-8.2); BASOPHILS 1.2 % (0.0-2.0); EOSINOPHILS 7.9 % (0.0-3.0); HEMOGLOBIN 11.1 gm/dL (14.0-18.0); LYMPHOCYTES 18.6 % (24.0-44.0); MCH 30.9 pg (26.0-34.0); MCHC 33.8 g/dL (28.0-37.0); MCV 91.4 fL (80.0-100.0); MONOCYTES 9.4 % (1.0-8.0); PLATELET COUNT 155 thou/uL (150-400); POLYS 62.9 % (36.0-66.0); RBC 3.61 mil/uL (4.50-6.00); RDW 15.2 % (10.5-14.5); WBC 6.1 thou/uL (4.0-11.0)
[2021-09-16 17:04] LABS: CALCIUM 8.5 mg/dL (8.5-10.1); CREATININE 1.3 mg/dL (0.7-1.3); POTASSIUM 4.6 mmol/L (3.5-5.1)
--- NOTE | 2021-09-17 07:07 | EKG ---
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 <ELECTRONICALLY SIGNED> By: Lucian Benton MD, [facility] 02/706 10 10 Lucian Benton MD, FAC /EPI
== END 2021-09-16 19:34 | disposition home or self-care (01) ==
LOC: ER 14:40
PROVIDERS: Student in an Organized Health Care Education/Training Program
DX: R07.89 Other chest pain (principal); M79.652 Pain in left thigh; I25.2 Old myocardial infarction; E03.9 Hypothyroidism, unspecified; Z79.899 Other long term (current) drug therapy; Z95.0 Presence of cardiac pacemaker

== ENCOUNTER → 2021-09-18 | Outpatient (CLI) | payer OTHER | LOC: SJCVC 14:08 | PROVIDERS: ATTEND Internal Medicine | DX: I25.10 Atherosclerotic heart disease of native coronary artery without angina pectoris (principal); I73.9 Peripheral vascular disease, unspecified; I70.1 Atherosclerosis of renal artery; K55.1 Chronic vascular disorders of intestine; I25.5 Ischemic cardiomyopathy; E78.5 Hyperlipidemia, unspecified; E03.9 Hypothyroidism, unspecified; Z95.0 Presence of cardiac pacemaker; Z87.891 Personal history of nicotine dependence; Z72.89 Other problems related to lifestyle; Z79.899 Other long term (current) drug therapy ==